=== PATIENT | male | born 1995 | race Two or more races ===

== ENCOUNTER 2023-08-30 21:13 | Emergency (ER) | payer OTHER ==
[~2023-08-30] VITALS: Ht 175.3 cm; Wt 89.8 kg
[2023-08-30 22:28] LABS: HEMATOCRIT 38.6 % (39.0-48.0); HEMOGLOBIN 13.4 g/dL (13-16.00); MEAN CELL VOLUME 85.3 fL (80.0-100.00); MEAN CORPUSCULAR HEMOGLOBIN 29.6 pg (27.00-32.0); MEAN CORPUSCULAR HGB CONC 34.7 g/dl (32.0-36.0); PLATELET COUNT 170 K/uL (150-450); RED BLOOD COUNT 4.52 M/uL (4.00-6.00); RED CELL DISTRIBUTION WIDTH 13.5 % (11.5-14.5)
== END 2023-08-30 23:25 | disposition home or self-care (01) ==
LOC: ER 21:14
PROVIDERS: General Practice
DX: J00 Acute nasopharyngitis [common cold] (principal); Z88.6 Allergy status to analgesic agent